=== PATIENT | female | born 1980 | race Caucasian/White ===

== ENCOUNTER 2017-09-22 10:00 | Inpatient (IN) | payer OTHER ==
[2017-09-22] MEDS ORDERED: LR 1,000 ML IV PRN (11:12)
[2017-09-22] MEDS ORDERED: EPSOM SALT 454 GM TP PRN (11:12)
[2017-09-22] MEDS ORDERED: OXYTOCIN/RINGERS LACTATE 1,000 ML IV PRN (11:12)
[2017-09-22] MEDS ORDERED: LIDOCAINE 1% 300 MG/30 ML SDV SC PRN (11:12)
[2017-09-22] MEDS ORDERED: MISOPROSTOL 200 MCG TAB PR PRN (11:12)
[2017-09-22] MEDS ORDERED: TERBUTALINE SULFATE 1 MG/ML VIAL IV PRN (11:12)
[2017-09-22] MEDS ORDERED: OLIVE OIL 118 ML BTL MISC PRN (11:12)
[2017-09-22 11:50] LABS: PLATELET COUNT 191 10^3/uL (150-400)
--- NOTE | 2017-09-22 12:28 | PREANESOB ---
Obstetric Pre-Anesthesia Info - General Info Proposed Procedure: cs : 5 Para: 3 MELVIN: 09/20/17 Gestational Age: 40 week(s) and 2 day(s) - Info Status: Full Term Monitors: External - Labor Status Section History: Repeat Labor Epidural: No (see box storage worker notes for more complete OB eval) Anesthesia ROS: hx of sab with sedation for emergent cs for abruptio, ga for d&c: both without problem; neg fam hx of anesthesia problems; allergy to keflex-mouth swelling; current meds: pnv, asa, Fe; neg medical hx except for scoliosis; NPO peanut butter at 0830 Allergies/Adverse Reactions: Allergy/AdvReac Type Severity Reaction Status Date / Time cephalexin monohydrate Allergy Hives Verified 05/01/16 18:42 [From Keflex] Home Medications: Medication Instructions Recorded Ferrous Sulfate [Iron] 1 tab PO DAILY 10/07/12 [place]-3 Fatty Acids/Fish Oil [Fish 1 cap PO DAILY 10/07/12 Oil 1,000 mg Capsule] Vit27&Calcium/Iron/FA 1 each PO DAILY 10/07/12 [] Ibuprofen [Motrin (*)] 600 mg PO Q6 PRN #0 tab 02/26/14 [place] 04/20/16 [place] 04/20/16 VITAMIN D 04/20/16 VITAMIN E 04/20/16 Visit Medications: Generic Name Dose Route Start Last Admin Trade Name Freq PRN Reason Stop Dose Admin Lactated Ringer's 1,000 mls @ 0 mls/hr 09/22/17 11:12 Lr IV 09/23/17 11:11 PRN PRN SEE PROTOCOL CONDITIONS Protocol Per Protocol Oxytocin/Lactated Ringer's 1,000 mls @ 125 mls/hr 09/22/17 11:12 Pitocin 20 Units/Lr (Premix) IV PRN PRN Post bleeding Ibuprofen 600 mg 09/22/17 11:12 Motrin PO ONCE PRN post , pain Lidocaine HCl 300 mg 09/22/17 11:12 Lidocaine Hcl 1% SC 03/21/18 11:11 ONCE PRN episiotomy Magnesium Sulfate 454 gm 09/22/17 11:12 Epsom Salt TP 03/21/18 11:11 Q1H PRN perineal discomfort Misoprostol 800 - 1,000 mcg 09/22/17 11:12 Cytotec AL ONCE PRN Vaginal Atony/Bleeding [place] Oil 118 ml 09/22/17 11:12 Sweet Oil MISC 03/21/18 11:11 ONCE PRN perineal massage Terbutaline Sulfate 0.25 mg 09/22/17 11:12 Brethine IV 03/21/18 11:11 ONCE PRN Tachysystole - Anesthesia History Response to Local Anesthetics: Normal Anesthesia & Operative History: No Prior Problems Family Anesthesia History: Negative - Social History Substance Use/Abuse: Denies - Vital Signs Height/Weight (Nursing): Height 157.48 cm Weight 76.771 kg - Focused Exam Neck exam: FROM Mallampati Score: Class 2 Mouth exam: normal dental/mouth exam Pulmonary: no respiratory distress Cardiovascular: regular rate and rhythym Labs: 09/22/17 11:30 Patient ABO/Rh B POSITIVE 09/22/17 11:30 - Plan Anesthetic Plan: sab Consent Signed and on Chart: Yes Patient/Guardian Understands and Agrees to Plan: Yes
--- NOTE | 2017-09-22 13:39 | GHP ---
[f rep st] HISTORY AND PHYSICAL DATE OF ADMISSION: 09/22/2017 ADMITTING DIAGNOSIS: 1. Intrauterine at 40 weeks and 2 days 2. Vaginal bleeding 3. LLQ Abdominopelvic pain 3. Previous HISTORY OF PRESENT ILLNESS: Patient is a 37-year-old 5, para 3-0-1-3, at 40 weeks and 2/7 days, with estimated due date 09/20/2017 by last menstrual 12/14/2016, and consistent with first trimester ultrasound. The patient presents to Labor and Delivery today with complaints of vaginal bleeding for the past 48 hours, progressively getting worse. She has noticed bleeding as heavy as a period, but denies any clots. The patient is also complaining of left lower quadrant pain that began 4 days ago and was severe; pain does radiate to her back, down to her lower leg. The patient was seen in the office 2 days ago, and was found to be 1 cm dilated, 50% effaced, -4 station. Her membranes were stripped and she was told to monitor for any bleeding. The patient is concerned with the amount of bleeding and the pain she is having secondary to her history of an abruption with her last that required an emergent . The patient states good movement. She states she is sendy irregularly, but pain in left lower quadrant is constant. Denies any leakage of fluid. Patient has good care at [facility], and presented in her first trimester. is complicated by advanced maternal age, all genetic testing was negative. is also complicated by history of an emergent with G3, secondary to an abruption. The patient is taking a baby aspirin. The patient also has a history of anxiety, currently not on any medications. Level 2 scan with MFM revealed normal anatomy with an estimated weight 88th percentile; normal fluid, and anterior placenta. The patient developed borderline anemia, and is taking iron. She declined Tdap. The patient desires and consents were obtained. GBS culture is negative. PAST OBSTETRIC HISTORY: In May 2011, she had a full-term vaginal delivery, at 40 and 1 weeks; baby girl weighing 6 pounds. In October 2012, she had another full-term vaginal delivery at 41 weeks and 3 days, a baby girl weighing 6 pounds 8 ounces. In January 2014, she had an emergent at 37 and 6 weeks secondary to placental abruption, a baby girl weighing 5 pounds 6 ounces. GYNECOLOGIC HISTORY: Age of menarche is 11. Cycles are every 27 to 33 days for 6 days. Last menstrual period 02/10/2016. Positive test 2016. Patient denies a history of any abnormal Pap smears or any exposure to STDs. CURRENT MEDICATIONS: Include vitamins and iron. ALLERGIES: Keflex, she has swelling in her mouth. PAST MEDICAL HISTORY: Anxiety, she had pyelonephritis with her at 34 weeks in 2012, frequent UTIs, and migraine headaches. PAST SURGICAL HISTORY: Emergent in 2013. Left toe bunion surgery. FAMILY HISTORY: Noncontributory. SOCIAL HISTORY: Patient is and lives with her and their 3 girls. She is a physical therapist. Denies any alcohol, tobacco, illicit drug use. REVIEW OF SYSTEMS: Ten point review of systems negative. Pertinent positives noted in HPI. LABS: Blood type B positive, antibody negative. RPR non reactive. Rubella immune. Hepatitis B surface antigen negative. HIV negative. AFP negative, 05/07/2017. Innatal screen negative 02/23/2017. H and H 12.3 and 35.9. 1 hour Glucola 95. GBS is negative. PHYSICAL EXAMINATION: VITAL SIGNS: On admission, vital signs are stable. Patient is afebrile. Well-nourished, well-developed female. Alert and oriented x3. No apparent distress. CARDIOVASCULAR: Regular rate and rhythm. LUNGS: Clear to auscultation bilaterally. ABDOMEN: Gravid, nondistended. MIld tenderness in the left lower quadrant. PELVIC: Deferred; there is no active bleeding. FHTs: Category 2 tracing noted; heart tones 130 bpm. There are occasional accelerations. Intermittent late decelerations. Moderate availability and at times, minimal variability. On toco, she is sendy irregularly. ASSESSMENT: The patient is a 37-year-old 5, para 3-0-1-3 at 40 weeks and 2 days, with a previous secondary to abruption, who comes in with vaginal bleeding and left lower quadrant pain. . 1. Admit to Labor and Delivery. 2. FHTs are Category 2 strip with intermittent late decelerations and at times minimal variability. 3. No active bleeding noted at this time. 4. Discussed proceeding with a repeat secondary to non-reassuring heart tones. Patient and spouse agrees with the plan. 5. Surgical consents were obtained. Discussed risks, benefits, alternatives of the procedure, including, but not limited to, bleeding, infection, and damage to surrounding organs. The patient understands all risks of surgery, and wants to proceed at this time. 6. Antibiotics wildlife conservationist to OR. 7. SCDs for DVT prophylaxis. 8. Will plan for 6-8 hours, since the patient last ate at 0830, or will do urgently if left lower quadrant pain worsens, any further bleeding, or if the strip becomes worse, with recurrent late decelerations. /[id number]/MODL MTDD
[2017-09-22] MEDS ORDERED: PHENYLEPHRINE 10 MG/ML SDV ONE (14:13)
[2017-09-22] MEDS ORDERED: ONDANSETRON 4 MG/2 ML VIAL ONE (14:13)
[2017-09-22] MEDS ORDERED: OXYTOCIN 100 UNITS/10 ML VIAL ONE (14:13)
[2017-09-22] MEDS ORDERED: LR 500 ML IV ONE (14:14)
[2017-09-22] MEDS ORDERED: morphINE PF 5 MG/10 ML INJ ONE (14:14)
[2017-09-22] MEDS ORDERED: fentaNYL 100 MCG/2 ML INJ ONE (14:14)
[2017-09-22] MEDS ORDERED: CITRIC ACID/SODIUM CITRATE 30 ML UDCUP PO ONE (14:16)
[2017-09-22] MEDS ORDERED: CLINDAMYCIN 900 MG/DEXTROSE 50 ML IV ONE (14:16)
[2017-09-22] MEDS ORDERED: LR 1,000 ML IV SCH (14:30)
[2017-09-22] MEDS ORDERED: LACTULOSE 20 GM/30 ML UDCUP PO PRN (16:17)
[2017-09-22] MEDS ORDERED: BISACODYL 10 MG SUPP PR PRN (16:17)
[2017-09-22] MEDS ORDERED: SIMETHICONE 80 MG TAB CHEW PO PRN (16:17)
[2017-09-22] MEDS ORDERED: DOCUSATE SODIUM 100 MG CAP PO PRN (16:17)
[2017-09-22] MEDS ORDERED: POLYETHYLENE GLYCOL 3350 17 GM PKT PO PRN (16:17)
[2017-09-22] MEDS ORDERED: MAGNESIUM HYDROXIDE 30 ML UDCUP PO PRN (16:17)
[2017-09-22] MEDS ORDERED: PROMETHAZINE HCL 25 MG/ML INJ IVP PRN (16:17)
[2017-09-22] MEDS ORDERED: HYDROmorphONE/DILAUDID 1 MG/ML INJ IVP PRN ×2 (16:19→16:27)
--- NOTE | 2017-09-22 16:23 | OBDEL ---
Info Type: Repeat Presentation at Delivery: Vertex (with R arm presenting) L&D Analgesia/Anesthesia Type: Spinal GBS+: No Intrapartum Medications: Discontinued Medications Generic Name Dose Route Start Last Admin Trade Name Alanna PRN Reason Stop Dose Admin Citric Acid/Sodium Citrate 30 ml 09/22/17 14:16 09/22/17 14:32 Bicitra PO 09/22/17 14:17 30 ml ONCALL ONE Administration Clindamycin Phosphate/Dextrose 50 mls @ 100 mls/hr 09/22/17 14:16 09/22/17 14 :32 Cleocin 900 Mg (Premix) IV 09/22/17 14:45 50 mls ONCALL ONE Administration Protocol - Care Provider Data Analyst Report Writer/PROPERTY MANAGEMENT ASSISTANT: Vidya Moyer - Hospital Course Intrapartum: 09/22/17 16:21 IUP @ 40 2/7 wks with previous c/s for abruption; with vaginal bleeding, LLQ pain and nonreassuring heart tones; AMA Indications for Delivery: Elective (Previous c/s; vaginal bleeding; nonreassuring heart strip) Vaginal Delivery - Labor and Delivery Onset of Contractions Date: 09/22/17 Onset of Contractions Time: 03:30 Cord Gases: Cord Gases Cord Blood PCO2 48.6 mmHg (37-60) 09/22/17 15:30 Cord Base Excess -5.3 mEq/L (-13.6--3.2) 09/22/17 15:30 Cord ABG pH 7.27 (7.10-7.37) 09/22/17 15:30 Cord VBG pH 7.30 (7.20-7.42) 09/22/17 15:30 Operative Report - Delivery Pre-op Diagnoses: IUP @ 40 2/7 wks with previous c/s secondary to abruption who presents with c/o vaginal bleeding and LLQ pain; nonreassuring heart strip with intermittent late decels and periods of minimal variability Post-op Diagnoses: IUP @ 40 2/7 wks with previous c/s secondary to abruption who presents with c/o vaginal bleeding and LLQ pain; nonreassuring heart strip with intermittent late decels and periods of minimal variability; suspected placenta abruption History of Prior Section: Yes Number of Prior Sections: 1 Indications for Prior Section: Placental Abruption Indications for Current Section: Non-reas. Status Procedure: Unscheduled, Low Transverse Surgeon: China Narayanan Job Placement Officer: Namrata Lane Anesthesiologist: Fran Arias Complications: None Findings: A viable male born at 1519 with 8 and 9 Apgars in cephalic presentation with R arm presenting. Cord clamping delayed x 60 sec and then clamped x 2 and cut. Cord gases and blood obtained and sent. [facility] to [facility]. Placenta was anterior with multiple clots, suspect abruption-delivered manually intact with 3-vc. Grossly normal appearing uterus, tubes and ovaries. Uterine incision was noted to be oozing, cautery and Traci used to achieve hemostasis. Pt marilia well. No complications. IV Fluid (ml): 2,200 EBL: 800cc UO: 150 cc clear urine Cord Gases: Cord Gases Cord Blood PCO2 48.6 mmHg (37-60) 09/22/17 15:30 Cord Base Excess -5.3 mEq/L (-13.6--3.2) 09/22/17 15:30 Cord ABG pH 7.27 (7.10-7.37) 09/22/17 15:30 Cord VBG pH 7.30 (7.20-7.42) 09/22/17 15:30 [place] Data MELVIN: 09/20/17 Gestational Age: 40 week(s) and 2 day(s) [place] Delivery Date: 09/22/17 Delivery Time: 15:19 Sex of : Male Score (1 Min): 8 Score (5 Min): 9 ICD10 Worksheet Patient Problems: Problems Problem Status Onset Status post repeat low transverse section Acute Placenta abruption, delivered, current hospitalization Acute Vaginal bleeding during Acute Previous section Acute
[2017-09-22] MEDS ORDERED: ONDANSETRON 4 MG/2 ML VIAL IVP PRN ×2 (16:27)
[2017-09-22] MEDS ORDERED: HYDROCODONE/APAP 5/325 TAB PO PRN (16:27)
[2017-09-22] MEDS ORDERED: MEPERIDINE 25 MG/0.5 ML AMP IVP PRN (16:27)
[2017-09-22] MEDS ORDERED: NALOXONE HCL 0.4 MG/ML INJ IVP PRN ×2 (16:27)
[2017-09-22] MEDS ORDERED: fentaNYL 100 MCG/2 ML INJ IVP PRN (16:27)
[2017-09-22] MEDS ORDERED: PHENYLEPHRINE HCL 100 MCG/ML SYR IVP PRN (16:27)
--- NOTE | 2017-09-22 16:32 | POSTANESTH ---
Post Anesthetic Evaluation Cardiovascular Status: Normal, Stable Respiratory Status: Normal, Stable Level of Consciousness/Mental Status: Can Participate in Eval Pain Control: Adequate, Prn Tx Ordered Nausea/Vomiting Control: Adequate, Prn Tx Ordered Complications Possibly Related to Anesthesia: None Noted (spinal resolving, stable in PACU, states comfortable)
--- NOTE | 2017-09-22 18:26 | GOP ---
[f rep st] OPERATIVE REPORT DATE OF OPERATION: 09/22/2017 SURGEON: China Narayanan DO LOOP SEWER: Namrata Lane CNM. ANESTHESIA: Spinal. ANESTHESIOLOGIST: Fran Arias MD. PREOPERATIVE DIAGNOSIS: 1. Intrauterine at 40 and 2/7 weeks with a previous section secondary to placental abruption 2. Vaginal bleeding 3. Left lower quadrant pain 4. Nonreassuring status. POSTOPERATIVE DIAGNOSIS: 1. Intrauterine at 40 and 2/7 weeks with a previous section secondary to placental abruption 2. Vaginal bleeding 3. Left lower quadrant pain 4. Nonreassuring status. 5. Suspected placental abruption. PROCEDURE PERFORMED: Repeat low transverse section. FINDINGS: A viable male infant born at 1519 with 8 and 9 Apgars in cephalic presentation with right arm presenting. Cord clamping was delayed for 60 seconds, then clamped x2 and cut. Cord gases and blood were obtained and sent. to [facility]. Placenta was noted to be anterior, with multiple clots, suspect abruption. Placenta was delivered manually intact with 3-vessel cord. Grossly normal-appearing uterus, tubes, and ovaries bilaterally. Uterine incision was noted to be oozing, both cautery and Traci were used to achieve hemostasis. ESTIMATED BLOOD LOSS: 800 cc. INDICATIONS: Patient is a 37-year-old 5, para 3-0-1-3 at 40 and 2/7 weeks, with history of a previous emergently secondary to placental abruption, who presents to Labor and Delivery today with complaints of vaginal bleeding for 48 hours' duration. She states she was "bleeding like a period." She is also c/o left lower quadrant pain for 3 days' duration which was pretty severe 3 days ago. Patient is concerned with her history of placental abruption that she was having another abruption at this time. On Labor and Delivery, patient is not actively bleeding. strip is Category 2 tracing with heart tones in 130s. There are occasional accelerations, intermittent late decels, and periods of minimal variability noted. Discussed with the patient and spouse, that with the history of her abruption and with her left lower quadrant pain and bleeding that she had, as well as non- reassuring status, recommend proceeding to the operating room for repeat C -section. Patient and spouse agree with the plan at this time. Discussed risks , benefits, alternatives of the procedure with the patient including but not limited to, bleeding, infection, damage to surrounding organs, and another procedure, hysterectomy. The patient understands all risks of the procedure, and wants to proceed with surgery at this time. Informed consent was obtained. DESCRIPTION OF PROCEDURE: The patient was taken to the operating room where spinal anesthesia was obtained without difficulty. A gill catheter was placed. Patient was prepped and draped in the usual sterile fashion, in dorsal supine position with leftward tilt. A Pfannenstiel skin incision was made with a scalpel through the old scar, and carried through the underlying layer of fascia using Bovie. The fascia was then incised in the midline and extended laterally using Cardenas scissors. Tobi clamps were then used to elevate the superior aspect of fascial incision which was elevated and underlying rectus muscle dissected off bluntly using Cardenas scissors. Attention was then turned to inferior aspect of fascial incision which in a similar fashion was grasped with Tobi clamps, elevated, and underlying rectus muscles dissected off bluntly using Cardenas scissors. Rectus muscles were then dissected in midline. Peritoneum was identified, and entered bluntly. Incision was then extended superiorly and inferiorly with good visualization of the bladder. Bladder blade was then inserted. Vesicouterine peritoneum was identified and scar tissue was noted here from the previous . The bladder flap was not able to be created secondary to scar tissue and bleeding. Lower uterine segment was incised in transverse fashion using scalpel and extended anteriorly and posteriorly with manual traction. Clear fluid was noted upon entry to the amniotic sac. There was an anterior placenta noted with several blood clots, suspect placental abruption. was then subsequently delivered with the right arm presenting, followed by delivery of the head and rest of the body without difficulty. The nose and mouth were bulb suctioned. The cord was delayed clamping for 60 seconds. Cord was then clamped x2 and cut. was subsequently handed to awaiting nursery nurse. Cord gases, as well as cord blood, was obtained. Placenta was delivered manually intact with 3-vessel cord. Uterus was then exteriorized, and cleared of all clots and debris. Uterine incision was repaired in 2 layers using 0 Vicryl suture. The first layer was closed with a running lock stitch of 0 Vicryl. Hemostasis was noted. Second layer was an imbricating layer with 0 Vicryl. There was noted to be some oozing, so cautery was used and hemostasis was achieved. Uterus was then returned to the abdomen and gutters were cleared of all blood, clots and debris. Uterus was reexamined, and noted to be hemostatic. Traci was placed on the uterine incision for further hemostasis. The rectus muscles were then reapproximated in midline using 3-0 Vicryl. Fascia was then closed with 0 Vicryl suture, and hemostasis was noted. Subcutaneous was closed with 2-0 Vicryl and the skin was closed with 4-0 Vicryl on a David needle. Patient tolerated the procedure well. No complications. Sponge, lap, and instrument counts correct x2. Patient was stable at the completion the procedure, and was transferred to recovery room in stable condition. IV FLUIDS: 2200 cc LR. URINE OUTPUT: 150 cc of clear urine at the end of the procedure. /[id number]/MODL MTDD
[2017-09-22] MEDS: HYDROCODONE/APAP 5/325 TAB PO PRN (23:35)
[2017-09-22] MEDS: SENNOSIDES/DOCUSATE SODIUM TAB PO SCH (23:37)
[2017-09-23] MEDS: HYDROCODONE/APAP 5/325 TAB PO PRN ×5 (03:58→21:22)
[2017-09-23] MEDS: SENNOSIDES/DOCUSATE SODIUM TAB PO SCH ×2 (08:37→21:20)
[2017-09-23] MEDS: IBUPROFEN 600 MG TAB PO PRN ×3 (08:38→21:23)
--- NOTE | 2017-09-23 09:34 | OBPP ---
Progress Note Assessment/Plan: Assessment: [id number] s/p repeat c/s POD#1 anemia Plan: routine post op care cont , will work with PRN start PO Iron BID plan d/c home approx 72 hours 09/23/17 09:31 Subjective/ Course: 09/23/17 09:32 Pt doing well, states she is having more pain than last night, she is due for pain meds. She reports min bleeding. She will ambulate today. She denies any flatus or BM. She is without difficulty. Objective: 09/23/17 04:25 Patient ABO/Rh B POSITIVE 09/22/17 11:30 Temp Pulse Resp BP Pulse Ox 37.3 C 89 16 94/65 L 99 09/23/17 03:56 09/23/17 06:00 09/23/17 03:56 09/23/17 03:56 09/23/17 06:00 Uterine Position/Fundal Height: Umbilicus -1, Midline Uterine Tone: Firm Physical Exam - Physical Exam General Appearance: WD/WN, alert, no apparent distress Neck: supple Respiratory: lungs clear, normal breath sounds Cardiac/Chest: regular rate, rhythm Abdomen: non-tender, soft, dressing (dressing: C/D/I- ok to remove this afternoon in shower) Extremities: non-tender Skin: normal color, warm/dry Neuro/Psych: alert, normal mood/affect, oriented x 3
[2017-09-23] MEDS: IRON POLYSAC/IRON HEME 28 MG TAB PO SCH (12:54)
[2017-09-24] MEDS: IRON POLYSAC/IRON HEME 28 MG TAB PO SCH ×3 (00:10→22:31)
[2017-09-24] MEDS: HYDROCODONE/APAP 5/325 TAB PO PRN ×4 (01:07→13:33)
[2017-09-24] MEDS: IBUPROFEN 600 MG TAB PO PRN ×5 (03:29→22:46)
[2017-09-24] MEDS: SENNOSIDES/DOCUSATE SODIUM TAB PO SCH ×2 (09:19→22:46)
[2017-09-24] MEDS: oxyCODONE IR 5 MG TAB PO PRN ×2 (18:36→22:47)
--- NOTE | 2017-09-25 01:37 | OBPP ---
Progress Note Assessment/Plan: Assessment:LATE NOTE : PT SEEN AND EXAMINED APPROX 10 PM POD 2 s/p RCS anemia on iron BID doing well - change to OxyIR Plan: routine care, UA and Cx obtained due to some urgency and mild dysuria 09/25/17 01:34 Subjective/ Course: 09/23/17 09:32 Pt doing well, states she is having more pain than last night, she is due for pain meds. She reports min bleeding. She will ambulate today. She denies any flatus or BM. She is without difficulty. 09/25/17 01:37 Pt doing well. Tired - long night with no good pain relief. much better today but needed to eliminate for max Tylenol - doing 2 OxyIR . baby latching well. urinating fine but at beginning and end of flow - some dysuria and urgency, UA and Cs sent. Objective: 09/23/17 04:25 Patient ABO/Rh B POSITIVE 09/22/17 11:30 Temp Pulse Resp BP Pulse Ox 36.7 C 98 18 120/79 93 09/24/17 20:00 09/24/17 20:00 09/24/17 20:00 09/24/17 20:00 09/24/17 20:00 Uterine Position/Fundal Height: Umbilicus -2 Uterine Tone: Firm Physical Exam - Physical Exam Abdomen: non-tender (approp post op tenderness), incision (CDI - no erythema) Extremities: non-tender, pedal edema (moderate) Skin: normal color, warm/dry Neuro/Psych: alert, normal mood/affect
[2017-09-25] MEDS: ACETAMINOPHEN 325 MG TAB PO PRN ×2 (02:06→10:08)
[2017-09-25] MEDS: oxyCODONE IR 5 MG TAB PO PRN ×5 (02:23→18:32)
[2017-09-25] MEDS: IBUPROFEN 600 MG TAB PO PRN ×2 (05:07→14:19)
[2017-09-25 07:37] VITALS: BP 113/79
[2017-09-25] MEDS: SENNOSIDES/DOCUSATE SODIUM TAB PO SCH (10:08)
[2017-09-25] MEDS: IRON POLYSAC/IRON HEME 28 MG TAB PO SCH ×2 (10:08→10:13)
--- NOTE | 2017-09-25 12:14 | OBPP ---
Progress Note Assessment/Plan: Assessment: POD3 s/p RCS Anemia - on iron, will contiue PP. Pain control - much better with oxy IR, will Rx for home. UA as above, no tx. Home today. Will give her Rx for Medela Symphony pump. JM Subjective/ Course: 09/23/17 09:32 Pt doing well, states she is having more pain than last night, she is due for pain meds. She reports min bleeding. She will ambulate today. She denies any flatus or BM. She is without difficulty. 09/25/17 01:37 Pt doing well. Tired - long night with no good pain relief. much better today but needed to eliminate for max Tylenol - doing 2 OxyIR . baby latching well. urinating fine but at beginning and end of flow - some dysuria and urgency, UA and Cs sent. 09/25/17 12:58 Alix is doing well - ready for home today. Pain much improved with Oxy IR. Would like Rx for Medela Symphony pump. Objective: 09/23/17 04:25 Patient ABO/Rh B POSITIVE 09/22/17 11:30 Temp Pulse Resp BP Pulse Ox 36.3 C 91 14 113/79 98 09/25/17 07:36 09/25/17 07:36 09/25/17 07:36 09/25/17 07:36 09/25/17 07:36 Laboratory Tests 09/22/17 09/22/17 09/23/17 11:30 11:30 04:25 Hct 40.5 31.8 L Urine Color Urine Appearance Urine pH Ur Specific [place] Urine Protein Urine Ketones Urine Blood Urine Nitrate Urine Bilirubin Urine Urobilinogen Ur Leukocyte Esterase Urine Glucose Patient ABO/Rh B POSITIVE 09/24/17 20:50 Hct Urine Color YELLOW Urine Appearance CLEAR Urine pH 5.0 Ur Specific [place] 1.020 Urine Protein NEGATIVE Urine Ketones NEGATIVE Urine Blood NEGATIVE Urine Nitrate NEGATIVE Urine Bilirubin NEGATIVE Urine Urobilinogen NEGATIVE Ur Leukocyte Esterase NEGATIVE Urine Glucose NEGATIVE Patient ABO/Rh Uterine Position/Fundal Height: At Umbilicus Uterine Tone: Firm (Incision sutured, CDI)
--- NOTE | 2017-09-25 12:14 | OBGCSDC ---
General Delivery Information - General Info : 5 Para: 4 Abortions: 1 Type: Repeat L&D Analgesia/Anesthesia Type: Spinal Admission Date: 09/22/17 Labs: Patient ABO/Rh B POSITIVE 09/22/17 11:30 Hct 31.8 % (38.0-47.0) L 09/23/17 04:25 - Hospital Course Intrapartum: 09/22/17 16:21 IUP @ 40 2/7 wks with previous c/s for abruption; with vaginal bleeding, LLQ pain and nonreassuring heart tones; AMA : 09/23/17 09:32 Pt doing well, states she is having more pain than last night, she is due for pain meds. She reports min bleeding. She will ambulate today. She denies any flatus or BM. She is without difficulty. 09/25/17 01:37 Pt doing well. Tired - long night with no good pain relief. much better today but needed to eliminate for max Tylenol - doing 2 OxyIR . baby latching well. urinating fine but at beginning and end of flow - some dysuria and urgency, UA and Cs sent. - Delivery Providers Surgeon: China Narayanan Air Conditioning Unit Tester: Namrata Lane Anesthesiologist: Fran Arias - Delivery Number of Prior Sections: 1 Indications for Current Section: Non-reas. Status Surgical Procedures: Unscheduled, Low Transverse Intra-op Complications: None EBL: 800cc UO: 150 cc clear urine Data MELVIN: 09/20/17 Gestational Age: 40 week(s) and 5 day(s) [place] Delivery Date: 09/22/17 Delivery Time: 15:19 Sex of : Male Weight (gm): 3344 kg Score (1 Min): 8 Score (5 Min): 9 Discharge Information - Discharge Information Prescriptions: oxyCODONE IR [Oxycodone Ir (*)] 5 - 10 mg PO Q4HRS PRN #30 tab PRN Reason: Pain, Severe Able To Take Po Condition: Good Instruction/Follow Up: See Instruction Sheet, Two Weeks, Four Weeks, Six Weeks
== END 2017-09-25 19:00 | disposition home or self-care (01) | DRG 765 ==
LOC: FLD 10:00 → FOB 18:38
PROVIDERS: ADMIT Obstetrics & Gynecology; ATTEND Obstetrics & Gynecology
PROC: 10D00Z1 Extraction of Products of Conception, Low, Open Approach (ICD-10-PCS; principal; 2017-09-22)
DX: O36.8390 Maternal care for abnormalities of the fetal heart rate or rhythm, unspecified trimester, not applicable or unspecified (principal); O45.93 Premature separation of placenta, unspecified, third trimester; O34.219 Maternal care for unspecified type scar from previous cesarean delivery; O48.0 Post-term pregnancy; O99.02 Anemia complicating childbirth; O09.523 Supervision of elderly multigravida, third trimester; R10.32 Left lower quadrant pain; D64.9 Anemia, unspecified; Z79.82 Long term (current) use of aspirin; Z87.59 Personal history of other complications of pregnancy, childbirth and the puerperium; Z87.440 Personal history of urinary (tract) infections; Z82.79 Family history of other congenital malformations, deformations and chromosomal abnormalities; Z3A.40 40 weeks gestation of pregnancy; Z37.0 Single live birth
CPT/HCPCS: J1170; J1200; J2274; J2370; J2405; J2590; J3010